=== PATIENT | female | born 1975 | race Caucasian/White ===

== ENCOUNTER 2017-06-27 06:29 | Emergency (ER) | payer MEDICARE ==
[~2017-06-27] VITALS: Ht 175.3 cm; Wt 81.7 kg
[2017-06-27] MEDS ORDERED: MARIJUANA (06:42)
[2017-06-27] MEDS ORDERED: METPRE4DP PO (09:20)
[2017-06-27] MEDS ORDERED: Ultram50 MG PO (09:20)
== END 2017-06-27 09:32 | disposition home or self-care (01) ==
LOC: ER 06:29
DX: M54.16 Radiculopathy, lumbar region (principal); Z88.8 Allergy status to other drugs, medicaments and biological substances; F17.200 Nicotine dependence, unspecified, uncomplicated
CPT/HCPCS: 72100; 73502; 99283